=== PATIENT | male | born 1960 | race Caucasian/White ===

== ENCOUNTER 2016-05-29 20:41 | Emergency (ER) | payer OTHER ==
[~2016-05-29] VITALS: Ht 188 cm; Wt 81.8 kg
[~2016-05-29 20:41] MED LIST: FOLI1 PO; IBUP-1547 PO
[2016-05-29 21:55] LABS: BASOPHILS % (AUTO) 1.7 % (0.0-2.0); EOSINOPHILS % (AUTO) 3.1 % (1.0-6.0); HEMATOCRIT 31.8 % (41-53); HEMOGLOBIN 10.4 g/dL (13.5-17.5); LYMPHOCYTES # (AUTO) 1.9 K/uL (1.0-4.8); MEAN CORPUSCULAR HEMOGLOBIN 32.1 pg (26.0-34.0); MEAN CORPUSCULAR HGB CONC 32.5 G/dL (31.0-37.0); MEAN CORPUSCULAR VOLUME 99 fL (80-100); MONOCYTES # (AUTO) 0.6 K/uL (0.1-1.0); MONOCYTES % (AUTO) 11.9 % (2.0-9.0); NEUTROPHILS # (AUTO) 2.3 K/uL (1.8-7.7); NEUTROPHILS % (AUTO) 45.3 % (40.0-70.0); PLATELET COUNT (AUTO) 141 K/uL (150-450); RED BLOOD CELL COUNT(AUTO) 3.23 MIL/uL (4.50-5.90); RED CELL DISTRIBUTION WIDTH 18.2 % (11.5-14.5)
[2016-05-29 22:04] LABS: ANION GAP 8 mmol/L (8-16); CALCIUM, TOTAL 7.5 mg/dL (8.8-10.5); CARBON DIOXIDE 25 mmol/L (22-29); CHLORIDE 113 mmol/L (98-107); CREATININE 0.95 mg/dL (0.60-1.30); GLOMERULAR FILTR. RATE CALC > 60 mL/min (>60); SODIUM SERUM 146 mmol/L (136-145); UREA NITROGEN, BLOOD 19 mg/dL (7-18)
[2016-05-29 22:12] LABS: ALANINE AMINOTRANSFERASE 75 U/L (12-78); ALBUMIN 2.1 g/dL (3.4-5.0); ASPARTATE AMINOTRANSFERASE 127 U/L (15-37); BILIRUBIN,TOTAL 0.6 mg/dL (0.1-1.0); TOTAL PROTEIN, SERUM 6.5 g/dL (6.4-8.2)
[2016-05-29 22:33] LABS: RBC MORPHOLOGY COMMENT ABNORMAL RBC MORPH
[2016-05-30] MEDS ORDERED: BACITRACIN 0.9 GM PACKET OINTMENT TP ONE (04:00)
[2016-05-30] MEDS ORDERED: HYDROGEN PEROXIDE 118 ML SOLUTION TP ONE (04:00)
[2016-05-30] MEDS ORDERED: POTASSIUM CHLORIDE 10% 40 MEQ/30 ML LIQUID UDCUP PO ONE (05:00)
[2016-05-30 06:00] VITALS: BP 126/74
== END 2016-05-30 06:20 | disposition home or self-care (01) ==
LOC: EMS 20:42
DX: R41.82 Altered mental status, unspecified (principal); F10.229 Alcohol dependence with intoxication, unspecified; E87.6 Hypokalemia; F15.10 Other stimulant abuse, uncomplicated; E44.0 Moderate protein-calorie malnutrition; S90.421A Blister (nonthermal), right great toe, initial encounter; X58.XXXA Exposure to other specified factors, initial encounter; Y93.89 Activity, other specified; Y92.89 Other specified places as the place of occurrence of the external cause; Y99.8 Other external cause status; Y90.8 Blood alcohol level of 240 mg/100 ml or more
CPT/HCPCS: 36415; 80053; 80307; 85025; 99284; G0480

== ENCOUNTER 2016-08-24 20:42 | Emergency (ER) | payer OTHER ==
[~2016-08-24] VITALS: Ht 188 cm; Wt 75.0 kg
[~2016-08-24 20:42] MED LIST changes: -FOLI1 PO
[2016-08-24 22:16] LABS: BASOPHILS % (AUTO) 0.3 % (0.0-2.0); EOSINOPHILS % (AUTO) 7.8 % (1.0-6.0); HEMATOCRIT 27.2 % (41-53); HEMOGLOBIN 9.2 g/dL (13.5-17.5); LYMPHOCYTES # (AUTO) 1.1 K/uL (1.0-4.8); LYMPHOCYTES % (AUTO) 48.6 % (22.0-44.0); MEAN CORPUSCULAR HEMOGLOBIN 31.8 pg (26.0-34.0); MEAN CORPUSCULAR HGB CONC 33.8 G/dL (31.0-37.0); MEAN CORPUSCULAR VOLUME 94 fL (80-100); MONOCYTES # (AUTO) 0.2 K/uL (0.1-1.0); MONOCYTES % (AUTO) 10.6 % (2.0-9.0); NEUTROPHILS # (AUTO) 0.8 K/uL (1.8-7.7); NEUTROPHILS % (AUTO) 32.7 % (40.0-70.0); PLATELET COUNT (AUTO) 100 K/uL (150-450); RED BLOOD CELL COUNT(AUTO) 2.88 MIL/uL (4.50-5.90); RED CELL DISTRIBUTION WIDTH 20.2 % (11.5-14.5); WHITE BLOOD COUNT (AUTO) 2.3 K/uL (4.5-11.0)
[2016-08-24 22:25] LABS: INR 1.6 (0.9-1.1); PROTHROMBIN TIME 17.1 SEC (9.4-11.6)
[2016-08-24 22:29] LABS: RBC MORPHOLOGY COMMENT ABNORMAL RBC MORPH
[2016-08-24 22:51] LABS: ANION GAP 5 mmol/L (8-16); CALCIUM, TOTAL 7.8 mg/dL (8.8-10.5); CARBON DIOXIDE 25 mmol/L (22-29); CHLORIDE 108 mmol/L (98-107); CREATININE 0.77 mg/dL (0.60-1.30); GLOMERULAR FILTR. RATE CALC > 60 mL/min (>60); POTASSIUM 3.3 mmol/L (3.5-5.1); SODIUM SERUM 138 mmol/L (136-145); UREA NITROGEN, BLOOD 14 mg/dL (7-18)
[2016-08-24 22:57] LABS: ALANINE AMINOTRANSFERASE 41 U/L (12-78); ALBUMIN 1.3 g/dL (3.4-5.0); ASPARTATE AMINOTRANSFERASE 43 U/L (15-37); BILIRUBIN,TOTAL 0.4 mg/dL (0.1-1.0); TOTAL PROTEIN, SERUM 7.3 g/dL (6.4-8.2)
[2016-08-24] MEDS ORDERED: CefTRIAXone SODIUM 1 GM/VIAL IM ONE (23:15)
[2016-08-24] MEDS ORDERED: KETOROLAC TROMETHAMINE 30 MG/ML VIAL IM ONE (23:15)
[2016-08-24] MEDS ORDERED: LIDOCAINE HCL/PF 1% 2 ML VIAL IM ONE (23:15)
[2016-08-24 23:58] VITALS: BP 134/76
== END 2016-08-25 00:31 | disposition home or self-care (01) ==
LOC: EMS 20:44
DX: S80.811A Abrasion, right lower leg, initial encounter (principal); L03.115 Cellulitis of right lower limb; M17.0 Bilateral primary osteoarthritis of knee; G89.29 Other chronic pain; F17.210 Nicotine dependence, cigarettes, uncomplicated; W19.XXXA Unspecified fall, initial encounter; Y93.89 Activity, other specified; Y92.89 Other specified places as the place of occurrence of the external cause; Y99.8 Other external cause status
CPT/HCPCS: 36415; 80053; 80307; 85025; 85610; 85730; 87040; 96372; 99284; G0480; J0696; J1885; J3490

== ENCOUNTER 2018-11-13 11:59 | Emergency (ER) | payer MEDICAID, OTHER ==
[~2018-11-13] VITALS: Ht 185.4 cm; Wt 76.4 kg
[~2018-11-13 11:59] MED LIST changes: -IBUP-1547 PO; +IBUP-2077 PO
[2018-11-13] MEDS ORDERED: LACT10SO62 PO (12:43)
[2018-11-13] MEDS ORDERED: OXYC10TA89 PO (12:43)
[2018-11-13] MEDS ORDERED: MELA1TAB28 PO (12:43)
[2018-11-13] MEDS ORDERED: ONDANSETRON HCL 4 MG TABLET PO ONE (13:00)
[2018-11-13] MEDS ORDERED: MORPHINE SULFATE 4 MG/ML SYRINGE IM ONE (13:00)
[2018-11-13 14:00] VITALS: BP 118/73
== END 2018-11-13 14:59 | disposition home or self-care (01) ==
LOC: EMS 12:00
DX: F11.23 Opioid dependence with withdrawal (principal); F17.210 Nicotine dependence, cigarettes, uncomplicated; Z79.899 Other long term (current) drug therapy; Z88.5 Allergy status to narcotic agent
CPT/HCPCS: 96372; 99283; 99406; J2270; Q0162

== ENCOUNTER 2018-11-18 18:09 | Emergency (ER) | payer OTHER ==
[~2018-11-18] VITALS: Ht 188 cm; Wt 72.7 kg
[~2018-11-18 18:09] MED LIST changes: -IBUP-2077 PO; +LACT10SO62 PO; +MELA1TAB28 PO; +OXYC10TA89 PO
[2018-11-18 19:25] VITALS: BP 123/81
[2018-11-18] MEDS ORDERED: IBUPROFEN 400 MG TABLET PO ONE (20:00)
[2018-11-18 20:34] LABS: BASOPHILS % (AUTO) 1.4 % (0.0-2.0); EOSINOPHILS % (AUTO) 2.9 % (1.0-6.0); HEMOGLOBIN 11.1 g/dL (13.5-17.5); LYMPHOCYTES # (AUTO) 1.5 K/uL (1.0-4.8); LYMPHOCYTES % (AUTO) 48.7 % (22.0-44.0); MEAN CORPUSCULAR HEMOGLOBIN 33.5 pg (26.0-34.0); MEAN CORPUSCULAR HGB CONC 34.7 G/dL (31.0-37.0); MEAN CORPUSCULAR VOLUME 97 fL (80-100); MONOCYTES # (AUTO) 0.4 K/uL (0.1-1.0); MONOCYTES % (AUTO) 12.9 % (2.0-9.0); NEUTROPHILS % (AUTO) 34.1 % (40.0-70.0); PLATELET COUNT (AUTO) 105 K/uL (150-450); RED BLOOD CELL COUNT(AUTO) 3.31 MIL/uL (4.50-5.90); RED CELL DISTRIBUTION WIDTH 15.9 % (11.5-14.5)
[2018-11-18 20:48] LABS: INR 1.4 (0.9-1.1); PROTHROMBIN TIME 14.1 SEC (9.4-11.6)
[2018-11-18 21:05] LABS: ANION GAP 8 mmol/L (8-16); CALCIUM, TOTAL 8.2 mg/dL (8.8-10.5); CARBON DIOXIDE 26 mmol/L (22-29); CHLORIDE 111 mmol/L (98-107); CREATININE 0.72 mg/dL (0.60-1.30); GLOMERULAR FILTR. RATE CALC > 60 mL/min (>60); GLUCOSE,RANDOM 96 mg/dL (70-110); POTASSIUM 3.6 mmol/L (3.5-5.1); SODIUM SERUM 145 mmol/L (136-145); UREA NITROGEN, BLOOD 9 mg/dL (7-18)
[2018-11-18 21:07] LABS: B-TYPE NATRIURETIC PEPTIDE 49 pg/mL (0-100)
[2018-11-18 21:12] LABS: ALANINE AMINOTRANSFERASE 29 U/L (12-78); ALBUMIN 2.1 g/dL (3.4-5.0); ALKALINE PHOSPHATASE 86 U/L (46-116); ASPARTATE AMINOTRANSFERASE 48 U/L (15-37); BILIRUBIN,TOTAL 0.6 mg/dL (0.1-1.0); TOTAL PROTEIN, SERUM 6.2 g/dL (6.4-8.2)
== END 2018-11-18 20:56 | disposition left against medical advice (07) ==
LOC: EMS 18:11
DX: R07.9 Chest pain, unspecified (principal); F11.10 Opioid abuse, uncomplicated; I25.2 Old myocardial infarction; Z79.899 Other long term (current) drug therapy; F17.210 Nicotine dependence, cigarettes, uncomplicated; F14.90 Cocaine use, unspecified, uncomplicated; Z88.5 Allergy status to narcotic agent
CPT/HCPCS: 93005

== ENCOUNTER 2018-11-19 01:07 | Emergency (ER) | payer OTHER ==
[~2018-11-19] VITALS: Ht 185.4 cm; Wt 72.7 kg
[2018-11-19 03:46] LABS: BASOPHILS % (AUTO) 1.3 % (0.0-2.0); HEMATOCRIT 37.3 % (41-53); HEMOGLOBIN 12.8 g/dL (13.5-17.5); LYMPHOCYTES # (AUTO) 1.3 K/uL (1.0-4.8); LYMPHOCYTES % (AUTO) 45.9 % (22.0-44.0); MEAN CORPUSCULAR HEMOGLOBIN 33.3 pg (26.0-34.0); MEAN CORPUSCULAR HGB CONC 34.4 G/dL (31.0-37.0); MEAN CORPUSCULAR VOLUME 97 fL (80-100); MONOCYTES # (AUTO) 0.3 K/uL (0.1-1.0); MONOCYTES % (AUTO) 10.5 % (2.0-9.0); NEUTROPHILS # (AUTO) 1.1 K/uL (1.8-7.7); NEUTROPHILS % (AUTO) 38.3 % (40.0-70.0); PLATELET COUNT (AUTO) 115 K/uL (150-450); RED BLOOD CELL COUNT(AUTO) 3.85 MIL/uL (4.50-5.90); RED CELL DISTRIBUTION WIDTH 16.1 % (11.5-14.5)
[2018-11-19 03:55] LABS: ANION GAP 8 mmol/L (8-16); CALCIUM, TOTAL 8.4 mg/dL (8.8-10.5); CARBON DIOXIDE 27 mmol/L (22-29); CHLORIDE 110 mmol/L (98-107); CREATININE 0.69 mg/dL (0.60-1.30); GLOMERULAR FILTR. RATE CALC > 60 mL/min (>60); GLUCOSE,RANDOM 86 mg/dL (70-110); POTASSIUM 3.3 mmol/L (3.5-5.1); SODIUM SERUM 145 mmol/L (136-145); UREA NITROGEN, BLOOD 8 mg/dL (7-18)
[2018-11-19 04:01] LABS: ALANINE AMINOTRANSFERASE 32 U/L (12-78); ALBUMIN 2.4 g/dL (3.4-5.0); ALKALINE PHOSPHATASE 80 U/L (46-116); ASPARTATE AMINOTRANSFERASE 50 U/L (15-37); BILIRUBIN,TOTAL 0.9 mg/dL (0.1-1.0); LIPASE 431 U/L (73-393); TOTAL PROTEIN, SERUM 6.8 g/dL (6.4-8.2)
[2018-11-19 04:03] LABS: APPEARANCE,URINE CLEAR (CLEAR); BILIRUBIN,URINE NEGATIVE (NEGATIVE); GLUCOSE, URINE (UA) NEGATIVE (NEGATIVE); KETONES,URINE NEGATIVE (NEGATIVE); LEUKOCYTE ESTERASE ,URINE NEGATIVE (NEGATIVE); NITRATE,URINE NEGATIVE (NEGATIVE); OCCULT BLOOD,URINE NEGATIVE (NEGATIVE); PH,URINE 5.5 (5.0-8.0); PROTEIN,URINE NEGATIVE (NEGATIVE); UROBILINOGEN,URINE 0.2 mg/dL (<=1.0)
[2018-11-19 04:09] LABS: AMPHET/METH SCREEN,URINE NEGATIVE (NEGATIVE); BARBITURATE SCREEN, URINE NEGATIVE (NEGATIVE); BENZODIAZEPINES SCREEN,URINE NEGATIVE (NEGATIVE); CANNABINOID SCREEN,URINE NEGATIVE (NEGATIVE); COCAINE SCREEN,URINE NEGATIVE (NEGATIVE); METHADONE SCREEN, URINE NEGATIVE (NEGATIVE); OPIATE SCREEN,URINE NEGATIVE (NEGATIVE)
[2018-11-19 04:13] LABS: PHENCYCLIDINE SCREEN,URINE NEGATIVE (NEGATIVE)
[2018-11-19] MEDS ORDERED: SODIUM CHLORIDE 0.9% 100 ML ONE (04:17)
[2018-11-19] MEDS ORDERED: IOVERSOL 350 MG/ML 100 ML VIAL ONE (04:17)
[2018-11-19] MEDS ORDERED: KETOROLAC TROMETHAMINE 30 MG/ML VIAL IVP ONE (05:45)
[2018-11-19 07:00] VITALS: BP 120/74
[2018-11-19] MEDS ORDERED: HYDROCODONE/ACETAMINOPHEN 5-325 MG TABLET PO ONE (07:00)
== END 2018-11-19 07:20 | disposition home or self-care (01) ==
LOC: EMS 01:09
DX: F10.229 Alcohol dependence with intoxication, unspecified (principal); R10.9 Unspecified abdominal pain; F17.210 Nicotine dependence, cigarettes, uncomplicated; Y90.6 Blood alcohol level of 120-199 mg/100 ml; Z88.5 Allergy status to narcotic agent; Z79.899 Other long term (current) drug therapy
CPT/HCPCS: 36415; 71045; 74177; 80053; 80307; 81003; 83690; 84484; 85025; 93005; 96374; 99284; G0480; J1885; J7050; Q9967

== ENCOUNTER 2020-04-20 15:52 | Emergency (ER) | payer OTHER ==
[~2020-04-20] VITALS: Ht 188 cm; Wt 75.0 kg
[~2020-04-20 15:52] MED LIST changes: -LACT10SO62 PO; -MELA1TAB28 PO; +METH10 PO; -OXYC10TA89 PO
[2020-04-20] MEDS ORDERED: PERTUSS(ACELL),DIPH,TET VAC/PF 0.5 ML SYRINGE IM ONE (17:45)
[2020-04-20] MEDS ORDERED: ACETAMINOPHEN 500 MG TABLET PO ONE (17:45)
[2020-04-20 20:56] VITALS: BP 124/73
== END 2020-04-20 22:14 | disposition home or self-care (01) ==
LOC: EMS 15:52
DX: S40.011A Contusion of right shoulder, initial encounter (principal); S60.011A Contusion of right thumb without damage to nail, initial encounter; S20.211A Contusion of right front wall of thorax, initial encounter; F17.210 Nicotine dependence, cigarettes, uncomplicated; F11.90 Opioid use, unspecified, uncomplicated; Z88.5 Allergy status to narcotic agent; Z88.8 Allergy status to other drugs, medicaments and biological substances; W19.XXXA Unspecified fall, initial encounter; Y93.89 Activity, other specified; Y92.89 Other specified places as the place of occurrence of the external cause; Y99.8 Other external cause status
CPT/HCPCS: 90471; 90715; 99284; 71045-TC; 71046; 71046-TC

== ENCOUNTER 2020-04-26 10:54 | Emergency (ER) | payer OTHER ==
[~2020-04-26] VITALS: Ht 188 cm; Wt 79.1 kg
[2020-04-26] MEDS ORDERED: KETOROLAC TROMETHAMINE 10 MG TABLET PO ONE (12:00)
[2020-04-26 12:41] VITALS: BP 151/78
== END 2020-04-26 13:06 | disposition home or self-care (01) ==
LOC: EMS 10:54
DX: M79.89 Other specified soft tissue disorders (principal); M54.5 Low back pain; M19.90 Unspecified osteoarthritis, unspecified site; F31.9 Bipolar disorder, unspecified; I10 Essential (primary) hypertension; F20.9 Schizophrenia, unspecified; I25.2 Old myocardial infarction; F17.210 Nicotine dependence, cigarettes, uncomplicated; F11.90 Opioid use, unspecified, uncomplicated; Z88.1 Allergy status to other antibiotic agents; Z88.5 Allergy status to narcotic agent; Z88.8 Allergy status to other drugs, medicaments and biological substances
CPT/HCPCS: 72100; 99284; 73130-TC; Z7502; Z7610

== ENCOUNTER 2020-05-03 15:24 | Emergency (ER) | payer OTHER ==
[~2020-05-03] VITALS: Ht 188 cm; Wt 79.5 kg
[2020-05-03] MEDS ORDERED: ACETAMINOPHEN 325 MG TABLET PO ONE (17:00)
[2020-05-03 17:30] VITALS: BP 130/78
== END 2020-05-03 17:40 | disposition short-term general hospital (02) ==
LOC: EMS 15:30
DX: M79.671 Pain in right foot (principal); F17.210 Nicotine dependence, cigarettes, uncomplicated; F15.90 Other stimulant use, unspecified, uncomplicated; Z88.1 Allergy status to other antibiotic agents; Z88.2 Allergy status to sulfonamides; Z79.899 Other long term (current) drug therapy
CPT/HCPCS: 99283

== ENCOUNTER 2020-05-04 10:26 | Emergency (ER) | payer OTHER ==
[~2020-05-04] VITALS: Ht 182.9 cm; Wt 77.3 kg
[2020-05-04 11:15] LABS: BASOPHILS % (AUTO) 2.3 % (0.0-2.0); EOSINOPHILS % (AUTO) 6.9 % (1.0-6.0); HEMATOCRIT 32.6 % (41-53); LYMPHOCYTES % (AUTO) 29.2 % (22.0-44.0); MEAN CORPUSCULAR HEMOGLOBIN 33.6 pg (26.0-34.0); MEAN CORPUSCULAR HGB CONC 33.9 G/dL (31.0-37.0); MEAN CORPUSCULAR VOLUME 99 fL (80-100); MONOCYTES # (AUTO) 0.6 K/uL (0.1-1.0); MONOCYTES % (AUTO) 16.4 % (2.0-9.0); NEUTROPHILS # (AUTO) 1.6 K/uL (1.8-7.7); NEUTROPHILS % (AUTO) 45.2 % (40.0-70.0); PLATELET COUNT (AUTO) 155 K/uL (150-450); RED BLOOD CELL COUNT(AUTO) 3.28 MIL/uL (4.50-5.90); RED CELL DISTRIBUTION WIDTH 16.6 % (11.5-14.5)
[2020-05-04 11:34] LABS: ANION GAP 10 mmol/L (8-16); CARBON DIOXIDE 29 mmol/L (22-29); CHLORIDE 104 mmol/L (98-107); CREATININE 0.83 mg/dL (0.60-1.30); GLUCOSE,RANDOM 81 mg/dL (70-110); POTASSIUM 3.5 mmol/L (3.5-5.1); SODIUM SERUM 143 mmol/L (136-145); UREA NITROGEN, BLOOD 8 mg/dL (7-18)
[2020-05-04 11:35] LABS: CALCIUM, TOTAL 8.5 mg/dL (8.8-10.5); GLOMERULAR FILTR. RATE CALC > 60 mL/min (>60)
[2020-05-04 11:40] LABS: ALANINE AMINOTRANSFERASE 20 U/L (12-78); ALBUMIN 2.5 g/dL (3.4-5.0); ALKALINE PHOSPHATASE 90 U/L (46-116); ASPARTATE AMINOTRANSFERASE 32 U/L (15-37); BILIRUBIN,TOTAL 0.6 mg/dL (0.1-1.0); TOTAL PROTEIN, SERUM 7.5 g/dL (6.4-8.2)
[2020-05-04 11:41] LABS: APPEARANCE,URINE CLEAR (CLEAR); BILIRUBIN,URINE NEGATIVE (NEGATIVE); GLUCOSE, URINE (UA) NEGATIVE (NEGATIVE); KETONES,URINE NEGATIVE (NEGATIVE); LEUKOCYTE ESTERASE ,URINE NEGATIVE (NEGATIVE); NITRATE,URINE NEGATIVE (NEGATIVE); OCCULT BLOOD,URINE NEGATIVE (NEGATIVE); PROTEIN,URINE NEGATIVE (NEGATIVE)
[2020-05-04 11:49] LABS: INR 1.3 (0.9-1.1); PROTHROMBIN TIME 13.1 SEC (9.4-11.6)
[2020-05-04 11:54] LABS: AMPHET/METH SCREEN,URINE NEGATIVE (NEGATIVE); BARBITURATE SCREEN, URINE NEGATIVE (NEGATIVE); BENZODIAZEPINES SCREEN,URINE POSITIVE (NEGATIVE); CANNABINOID SCREEN,URINE NEGATIVE (NEGATIVE); COCAINE SCREEN,URINE POSITIVE (NEGATIVE); METHADONE SCREEN, URINE POSITIVE (NEGATIVE); OPIATE SCREEN,URINE NEGATIVE (NEGATIVE)
[2020-05-04 11:55] LABS: PHENCYCLIDINE SCREEN,URINE NEGATIVE (NEGATIVE)
[2020-05-04 13:35] VITALS: BP 112/64
== END 2020-05-04 14:02 | disposition home or self-care (01) ==
LOC: EMS 10:31
DX: F10.129 Alcohol abuse with intoxication, unspecified (principal); R53.1 Weakness; F19.10 Other psychoactive substance abuse, uncomplicated; F31.9 Bipolar disorder, unspecified; I10 Essential (primary) hypertension; I25.2 Old myocardial infarction; F20.9 Schizophrenia, unspecified; F17.210 Nicotine dependence, cigarettes, uncomplicated; Z88.5 Allergy status to narcotic agent; Z88.1 Allergy status to other antibiotic agents; Z88.8 Allergy status to other drugs, medicaments and biological substances; Y90.8 Blood alcohol level of 240 mg/100 ml or more
CPT/HCPCS: 36415; 71045; 80053; 80307; 81003; 84484; 85025; 85610; 85730; 93005; 99285; G0480

== ENCOUNTER 2020-05-04 18:04 | Emergency (ER) | payer OTHER ==
[~2020-05-04] VITALS: Ht 180.3 cm; Wt 70.5 kg
[2020-05-04 18:08] VITALS: BP 102/68
== END 2020-05-04 18:27 | disposition left against medical advice (07) ==
LOC: EMS 18:06
DX: F11.20 Opioid dependence, uncomplicated (principal); Z53.21 Procedure and treatment not carried out due to patient leaving prior to being seen by health care provider

== ENCOUNTER 2020-05-17 00:50 | Emergency (ER) | payer OTHER ==
[~2020-05-17] VITALS: Ht 180.3 cm; Wt 70.5 kg
[2020-05-17] MEDS ORDERED: PERMETHRIN 5% 60 GM CREAM TP ONE (02:00)
[2020-05-17] MEDS ORDERED: SULFAMETHOX/TRIMETH DS 800-160 MG/TABLET PO ONE (02:00)
[2020-05-17] MEDS ORDERED: CEPHALEXIN MONOHYDRATE 500 MG CAPSULE PO ONE (02:00)
[2020-05-17] MEDS ORDERED: PERMETHRIN 1% 60 ML LOTION TP ONE (02:00)
[2020-05-17 02:15] VITALS: BP 137/77
== END 2020-05-17 02:40 | disposition home or self-care (01) ==
LOC: EMS 00:54
DX: L03.116 Cellulitis of left lower limb (principal); L03.115 Cellulitis of right lower limb; B85.2 Pediculosis, unspecified; B85.1 Pediculosis due to Pediculus humanus corporis; F31.9 Bipolar disorder, unspecified; I10 Essential (primary) hypertension; I25.2 Old myocardial infarction; F17.210 Nicotine dependence, cigarettes, uncomplicated; F11.90 Opioid use, unspecified, uncomplicated
CPT/HCPCS: 99284; Z7502; Z7610

== ENCOUNTER 2022-05-18 14:16 | Emergency (ER) | payer MEDICAID, OTHER ==
[~2022-05-18] VITALS: Ht 182.9 cm; Wt 75.0 kg
[2022-05-18 19:32] LABS: APPEARANCE,URINE CLEAR (CLEAR); BILIRUBIN,URINE NEGATIVE (NEGATIVE); GLUCOSE, URINE (UA) NEGATIVE (NEGATIVE); KETONES,URINE NEGATIVE (NEGATIVE); LEUKOCYTE ESTERASE ,URINE NEGATIVE (NEGATIVE); NITRATE,URINE NEGATIVE (NEGATIVE); OCCULT BLOOD,URINE NEGATIVE (NEGATIVE); PROTEIN,URINE NEGATIVE (NEGATIVE); SPECIFIC GRAVITIY, URINE 1.014 (1.003-1.030)
[2022-05-18 19:38] LABS: BACTERIA,URINE None Seen /HPF (None Seen); RBC,URINE None Seen /HPF (0-2); WBC,URINE None Seen /HPF (0-5)
[2022-05-19] VITALS: BP 147/57
== END 2022-05-19 | disposition home or self-care (01) ==
LOC: EMS 14:25
DX: S60.511A Abrasion of right hand, initial encounter (principal); F10.20 Alcohol dependence, uncomplicated; F31.9 Bipolar disorder, unspecified; I10 Essential (primary) hypertension; F20.9 Schizophrenia, unspecified; F17.210 Nicotine dependence, cigarettes, uncomplicated; Z98.890 Other specified postprocedural states; X58.XXXA Exposure to other specified factors, initial encounter; Y93.89 Activity, other specified; Y92.89 Other specified places as the place of occurrence of the external cause; Y99.8 Other external cause status
CPT/HCPCS: 81001; 99283